=== PATIENT | male | born 1985 | race Caucasian/White ===

== ENCOUNTER 2021-04-13 10:18 | Emergency (ER) | payer SELFPAY ==
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
[2021-04-13 10:27] VITALS: BP 156/116; RESP 18; TEMP 36.8; O2SAT 98
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
[2021-04-13 11:33] LABS: Alveolar/Arterial O2 Gradient 4.1 mmHg; Base Excess ABG 1.7 mEq/l (+/-2.0); Carboxyhemoglobin 2.6 % THb (0-2.0); Fractional Inspired Oxygen 21 %; HCO3 ABG 25.9 mEq/l (22.0-26.0); Methemoglobin ABG 0.2 %THb (0-1.5); Oxygen Content ABG 20.3 %vol (16.0-22.0); Oxygen Saturation ABG 97.7 % (95.0-100.0); Oxyhemoglobin 94.5 % THb (90.0-100.0); PCO2 ABG 39.3 mmHg (35.0-45.0); PO2 ABG 98.6 mmHg (80.0-100.0); Reduced Hemoglobin 2.7 %THb (0-5.0); Total Hemoglobin 15.2 g/dL (12.0-18.0); pH ABG 7.436 (7.350-7.450)
[2021-04-13 11:35] LABS: Device ROOM AIR; Modified Allen's Test Pass; Site Drawn LEFT BRACHIAL
[2021-04-13] MEDS: TETANUS,DIPHTHERIA,AC PERTUSSIS ADULT (0.5 ML) BOOSTRIX IM (11:42)
[2021-04-13] MEDS: LACTATED RINGERS 1,000 ML 300 ML IV CONT (11:42)
[2021-04-13] MEDS: SILVER SULFADIAZINE 1% CR 50 GM JAR (*BKC) 1 APPLIC TOPICAL (11:43)
[2021-04-13 13:18] VITALS: BP 130/94; PULSE 95; RESP 20; O2SAT 95
[2021-04-13 13:28] VITALS: BP 130/94; PULSE 88; RESP 20; O2SAT 97
== END 2021-04-13 13:42 | disposition home or self-care (01) ==
PROVIDERS: Physician Assistant; Emergency Provider Emergency Medicine
DX: T22.212A Burn of second degree of left forearm, initial encounter (principal); T22.211A Burn of second degree of right forearm, initial encounter; T31.0 Burns involving less than 10% of body surface; F17.200 Nicotine dependence, unspecified, uncomplicated; Z23 Encounter for immunization
CPT/HCPCS: 16020; 36600; 71046; 82375; 82805; 83050; 90471; 90715; 99283; A9270; J7120